=== PATIENT | male | born 1950 | race Caucasian/White ===

== ENCOUNTER 2016-11-18 19:43 | Observation (INO) | payer BC ==
--- NOTE | ~2016-11-18 | HP ---
History And Physical [address] [address] NAME: HIMA MOLINA : 48 STATUS : REG ER PAT#: [id number] AGE: 66 ADM/REG DATE : 11/18/16 MR#: [id number] REPORT SERV DATE: 11/19/16 DICTATED BY: JOSTIN CHAVEZ DATE: 11/19/16 REPORT STATUS : Draft TRANSCRIBED BY: MODL DATE: 11/19/16 DATE OF ADMISSION: 11/18/2016 CHIEF COMPLAINT: Shortness of breath. HISTORY OF PRESENT ILLNESS: The patient is a 66-year-old male. He has a past medical history significant for: 1. COPD. 2. Coronary artery disease, status post valve replacement and five-vessel CABG. 3. Diabetes. 4. Hyperlipidemia. 5. Neuropathy. He normally uses 2 to 2-1/2 L of oxygen at home for the past week. He has had to increase it to 3. He states his symptoms have been wheezing and cough. No documented temperature. He had diarrhea for approximately a week two weeks ago but that has since resolved. He has been using his oxygen, his home medications. He was more short of breath today and presented for evaluation. Initially, he required high-flow O2. Currently, post treatment he is comfortable on 4 L, in no acute distress. He has had no associated chest pain, palpitations with this particular episode. He states actually his coronary status has been very stable since two years ago when he had all the previous problems. PAST MEDICAL HISTORY: As covered above. PAST SURGICAL HISTORY: He reports only the CABG and a valve replacement. CURRENT MEDICATIONS: Current medications are ProAir, aspirin 81, Lipitor 40, Symbicort 160/4.5 two puffs twice a day, calcium plus D 600, Coreg 6.25 b.i.d., Colace, Neurontin 300 at bedtime, Apidra insulin he states he averages 5-10 units per meal, Imdur 30, Mobic 15, multivitamin, Protonix 40, Janumet one twice a day, Potassium OTC, Ambien 5 at bedtime. ALLERGIES: CRESTOR. HE STATES THEY CAUSED HIM KIDNEY PROBLEMS. FAMILY HISTORY: Both parents . Mother has back cancer. His father . SOCIAL HISTORY: He is a previous smoker, 2 pack per day. Quit 13 years ago. No EtOH. REVIEW OF SYSTEMS: HEENT: He has had no sinus or sore throat. CARDIOVASCULAR: No chest pain or palpitations. PULMONARY: As covered in HPI. GI: As covered in HPI. : He is not having frequency or urgency. NEUROMUSCULOSKELETAL: Generalized myalgias. Otherwise 10-point review of systems is negative. History And Physical [address] [address] NAME: HIMA MOLINA : 48 STATUS : REG ER PAT#: [id number] AGE: 66 ADM/REG DATE : 11/18/16 MR#: [id number] REPORT SERV DATE: 11/19/16 DICTATED BY: JOSTIN CHAVEZ DATE: 11/19/16 REPORT STATUS : Draft TRANSCRIBED BY: AUDIE DATE: 11/19/16 PHYSICAL EXAMINATION: VITAL SIGNS: BP 164/81, temperature 98.5, pulse 97, respirations 16, sat 94%. GENERAL: He is awake, alert, appropriate, in no acute distress. No labored breathing. He is not confused or disoriented. HEENT: Normocephalic, atraumatic. Sclerae nonicteric. NECK: Supple. HEART: Regular rate and rhythm. No significant murmurs or gallops or rubs. LUNGS: Actually sound fairly well. He has minimal expiratory wheezing. He has reasonable air movement. ABDOMEN: Nontender, nondistended. EXTREMITIES: No clubbing, cyanosis, or edema. LABORATORY DATA: Sodium 142, potassium 4.8, chloride 100, CO2 of 35, BUN and creatinine are 20 and 0.94 with a glucose of 281. Mag is slightly low at 1.3, alkaline phosphatase is 163. Troponins 0.03. BNP is 210. Lipase is 100, lactate is 2.1. White count is 19.8, H and H 13.8 and 42.4, platelets are 260. Urinalysis shows large LE and 41 white blood cells with 2 epis. Chest x-ray to my interpretation; COPD. EKG; normal sinus rhythm. Normal EKG. ASSESSMENT: Chronic obstructive pulmonary disease exacerbation, possible urinary tract infection, history of coronary artery disease, and diabetes mellitus. PLAN: 1. The patient is admitted. We will do an observation. 2. Steroids, breathing treatments, nebulizers, reasonable O2. 3. Replace mag. 4. Antibiotics both for the pulmonary complaints and possible UTI. TLF/MODL Jostin Chavez M.D. / [id number]
--- NOTE | ~2016-11-18 | DS ---
Discharge Summary [address] [place]. [address] NAME: HIMA MOLINA : 48 STATUS : DIS John PAT#: [id number] AGE: 66 ADM/REG DATE : 11/18/16 MR#: [id number] REPORT SERV DATE: 11/21/16 DICTATED BY: DATE: REPORT STATUS : Draft TRANSCRIBED BY: MODL DATE: 11/20/16 ADMISSION DATE: 11/18/2016 DISCHARGE DATE: 11/20/2016 DISCHARGE DIAGNOSES: 1. Chronic obstructive pulmonary disease/chronic respiratory failure with acute exacerbation. 2. Type 2 diabetes, uncontrolled. 3. Neuropathy. 4. Coronary artery disease, chronic. 5. Hyperlipidemia. 6. Abnormal urinalysis? CONSULTATIONS: None. PERTINENT TESTS AND PROCEDURES: 1. Chest x-ray, 11/18/2016: Impression: Cardiomediastinal silhouette normal in size and contour. No airspace consolidation demonstrated within the lungs. No pleural fluid collection or pneumothorax seen. 2. Urinalysis specimen collected 11/19: Result: Leukocyte esterase negative, nitrite negative, 3 red blood cells, 6 white blood cells, 1 epithelial, squamous cell. CHIEF COMPLAINT UPON ADMISSION: Shortness of breath. HOSPITAL COURSE: Please refer to the history and physical dated 11/19/[address] Jostin Hopkins for complete details pertaining to patient's initial presentation upon admission and health history. Briefly, the patient is a 66-year-old male who presented to the emergency department on 11/18 with complaints of shortness of breath at home for the past week. The patient reported increased requirement for supplemental oxygen stating normal requirement at home is between 2 and 2.5 L per nasal cannula. The patient also reported that he had increased wheezing and coughing with no documented temperature. Initial evaluation and assessment included suspicion for chronic obstructive pulmonary disease exacerbation and possible urinary tract infection. The patient was admitted for further evaluation and treatment. 1. COPD with chronic respiratory failure, acute exacerbation. Per patient report, he is followed on an outpatient basis by Dr. Piedra, wire winder. The patient said he had been instructed in the past to use his supplemental oxygen 24 hours a day. However, the patient states that he has only been using nighttime supplemental oxygen because he believed he did not require it during the day. Oxygen saturation on room air at rest was reported to be between 86 and 89%, and 82% on room air with ambulation. The patient was advised of these findings, and educated to wear his supplemental oxygen 24 Discharge Summary [address] [place]. [address] NAME: HIMA MOLINA : 48 STATUS : DIS John PAT#: [id number] AGE: 66 ADM/REG DATE : 11/18/16 MR#: [id number] REPORT SERV DATE: 11/21/16 DICTATED BY: DATE: REPORT STATUS : Draft TRANSCRIBED BY: MODL DATE: 11/20/16 hours a day, seven days weekly until followup with Pulmonology. The patient was started on azithromycin 500 mg IV daily and methylprednisolone 60 mg IV every six hours upon admission. Azithromycin was transitioned to p.o., methylprednisone was discontinued and prednisone 40 mg p.o. daily was started. The patient will complete a total of five-day antibiotic and steroid therapy to be continued as an outpatient. Both medications will be completed on 11/23. 2. At the time of discharge, the patient's oxygen saturation was stable at 93% on 3 L. Respiratory Therapy is to meet with the patient and provide flutter valve and education regarding proper use prior to discharge home. The patient received prescription for albuterol inhalation solution, 3 mL every eight hours as needed x2 weeks. The patient has a nebulizer machine at home. The patient was also instructed to call Dr. Piedra's office tomorrow and advised of recent hospitalization regarding acute exacerbation and request appointment within two weeks. 3. Type 2 diabetes mellitus, uncontrolled. The patient's A1c was reported to be 10. Blood glucose has increased secondary to steroids. The patient was educated on the risk associated with high A1c especially in the setting of coronary artery disease. The patient was instructed to check blood glucose three times daily while on steroids and was provided a copy of sliding scale insulin level 3 instructions. The patient was advised to call primary care provider tomorrow to schedule followup visit within the next seven days to re-evaluate current diabetic medication regimen in the setting of uncontrolled hyperglycemia. 4. Neuropathy. This is likely secondary to uncontrolled type 2 diabetes. The patient continued home dose of gabapentin during this admission. 5. Coronary artery disease. The patient is status post valve replacement and five-vessel coronary artery bypass graft. Condition has remained stable throughout this admission. Troponin was obtained upon admission and was negative. The patient continued aspirin and cardiac medications throughout this admission. 6. Hyperlipidemia. The patient continued statin throughout this admission. DISCHARGE CONDITION: At the time of discharge, the patient was hemodynamically stable. DISCHARGE DIET: 1800-calorie ADA diet. DISCHARGE MEDICATIONS: 1. Aspirin 81 mg tablet p.o. daily. 2. Lipitor 40 mg tablet p.o. daily at bedtime. 3. Zithromax 500 mg tablet p.o. daily, last dose 11/23/2016. 4. Janumet mg tablet, one tablet p.o. twice daily. 5. Coreg 6.25 mg tablet p.o. twice daily. 6. Caltrate 600 mg tablet p.o. daily. 7. Colace 100 mg tablet p.o. every morning. 8. Neurontin 300 mg tablet p.o. daily at bedtime. 9. Guaifenesin 600 mg p.o. every 12 hours as needed. 10.Apidra insulin sliding scale. The patient was provided a copy of sliding scale insulin to use this guide at home. 11.Imdur 30 mg tablet p.o. daily. 12.Mobic 15 mg tablet p.o. daily. Discharge Summary [address] [place]. [address] NAME: HIMA MOLINA : 48 STATUS : DIS John PAT#: [id number] AGE: 66 ADM/REG DATE : 11/18/16 MR#: [id number] REPORT SERV DATE: 11/21/16 DICTATED BY: DATE: REPORT STATUS : Draft TRANSCRIBED BY: MODL DATE: 11/20/16 13.Multivitamin one tablet p.o. daily. 14.Protonix 40 mg tablet p.o. daily. 15.Ambien 5 mg tablet p.o. daily at bedtime. 16.Prednisone 40 mg tablet p.o. daily through 11/23/2016. 17.Albuterol metered-dose inhaler two puffs inhaled as needed. 18.Tylenol 650 mg p.o. every four hours as needed. 19.Ellis nasal spray one to two squirts in each nostril as needed. 20.Albuterol 2.5 mg/3 mL solution, 3 mL inhaled every eight hours as needed for shortness of breath and wheeze; dispensed two-week supply. 21.[id number] potassium daily. 22.Symbicort 160/4.5 inhaler two puffs inhaled twice daily. DISCHARGE INSTRUCTIONS: 1. The patient is to call Dr. Piedra's office, wire winder, in the morning to arrange for followup visit within the next two weeks for reevaluation and treatment of chronic COPD with recent exacerbation. 2. The patient is to arrange appointment with primary care physician within seven days regarding uncontrolled type 2 diabetes. 3. The patient was instructed to complete all medications as prescribed. The patient was re-educated on wearing supplemental oxygen 24 hours daily seven days weekly as he reported pulmonology originally prescribed. The patient was instructed to return to the emergency department for any acute onset of fever of 100.4 degrees Fahrenheit or higher lasting more than one hour; increased shortness of breath from baseline; chest pain; syncope or near syncopal episode, or any other health concerns that are deviations from his baseline status at the time of this discharge. PRIMARY CARE PHYSICIAN: The patient did not know the name, but stated had contact information at home. PRIMARY BLOW MOLDING MACHINE OPERATOR: Claribel Piedra M.D. PRIMARY OBJECT ORIENTED DEVELOPER: Dr. Nixon/Bonnie Taylor, nurse practitioner. [facility]/AUDIE KORY Molina / [id number] CC: Aaron Hadley II, MD
[2016-11-18 19:39] LABS: BASOPHILS 0.2 %; BASOPHILS ABSOLUTE 0.02 10/3/uL (0.0-0.16); EOSINOPHILS 3.3 %; EOSINOPHILS ABSOLUTE 0.32 10/3/uL (0.0-0.53); HEMATOCRIT 42.4 % (40.0-51.0); HEMOGLOBIN 13.8 g/dL (13.6-17.8); IMMATURE GRANULOCYTES 0.1 %; IMMATURE GRANULOCYTES ABSOLUTE 0.01 10/3/uL (0.0-0.11); LYMPHOCYTES 11.8 %; LYMPHOCYTES ABSOLUTE 1.16 10/3/uL (0.67-4.30); MEAN CORPUS HGB CONC 32.5 g/dL (32.0-36.0); MEAN CORPUSCULAR HEMOGLOB 29.5 pg (26.0-34.0); MEAN CORPUSCULAR VOLUME 90.6 fL (80-100); MEAN PLATELET VOLUME 10.8 fL (9.2-13.0); MONOCYTES 10.1 %; MONOCYTES ABSOLUTE 0.99 10/3/uL (0.21-1.20); NEUTROPHILS 74.5 %; NEUTROPHILS ABSOLUTE 7.32 10/3/uL (2.02-8.40); RBC DISTRIBUTION WIDTH 12.8 % (12.0-16.0); RED CELL COUNT 4.68 10/6/uL (4.7-6.1)
[2016-11-18 19:40] LABS: ER CBC TAT 0 Hrs 12 Mins; MANUAL DIFF NO %; PLATELET COUNT 260 10/3/uL (150-400); WHITE BLOOD CELLS 9.8 10/3/uL (4.5-10.5)
[~2016-11-18 19:43] MED LIST: *UNABLE1; ACCUNE1 INH; ADVAIR250 INH; ANDERSON PO; APIDRA; APIDRA SC; ASAB PO; ATROVENTUD INH; BACTRONASA NAS; BYDUREON2 MG SQ; CALTRAT600 PO; CENTRUM TAB1 TAB PO; CLARIT10 PO; CODEINE/GUAI1 ML PO; COMBIVENT INH; COREG3 PO; DSS PO; ENDOCET1 TAB PO; FARXIGA10 PO; FARXIGA5 PO; FLOMAX4 PO; FLONASE NAS; FLUCON1 PO; GABAPENTIN; JANUVIA100 MG PO; KLOR-CON M1010 MEQ PO; KLOR-CON M2020 MEQ PO; L40 PO; LANTUS SC; LANTUS SQ; LEVAQUIN750 MG PO; MUCINEX600 MG PO; MULTIVIT/MIN PO; NEUR300 PO; NORCO1 TA1 PO; NOVOLOG SC; PCET PO; PRAVAC PO; PRIN5 PO; PROAIR HFA; PROTONIX PO; RED YEAS1 OR; SINGULAIR1 PO; SPIRIVA INH; STOOL SOFTEN100 MG PO; SYMBICORT 160/41 INH IH; T PO; TESS PO; TRICOR145 PO; ULTRAM50 PO; UNABLE TO OBTAIN; ZESTRIL2.5 MG PO; ZOFRAN4 PO; ZYRTEC ALLGY10 MG PO
[2016-11-18 19:54] LABS: INTERNATIONAL NORMAL RATI 1.1 UNITS (-); PROTIME (NOT ORD) 13.9 SEC (12.0-14.5)
[2016-11-18 19:55] LABS: PARTIAL THROMBO TIME 31.3 SEC (22.5-37.2)
[2016-11-18 19:57] LABS: ALBUMIN 3.5 G/DL (3.5-5.0); ALKALINE PHOSPHATASE 163 U/L (45-117); BUN (BLOOD UREA NITROGEN) 20 MG/DL (6-23); CALCIUM, SERUM 9.2 MG/DL (8.5-10.4); CHEST PAIN PROFILE TAT 0 Hrs 29 Mins; CHLORIDE, SERUM 100 MMOL/L (96-112); CO2 (CARBON DIOXIDE) 35 MMOL/L (24-34); CREATININE 0.94 MG/DL (0.70-1.30); DIRECT BILIRUBIN < 0.1 MG/DL (0.0-0.4); GFR AFRICAN AMERICAN 97 ML/MIN (>=60); GFR NON AFRICAN AMERICAN 84 ML/MIN (>=60); GLUCOSE, SERUM 281 MG/DL (60-99); INDIRECT BILIRUBIN(NOT ORDER) 0.1 MG/DL (0.1-0.9); POTASSIUM, SERUM 4.8 MMOL/L (3.5-5.3); SGOT(AST) 4 U/L (5-40); SGPT(ALT) 17 U/L (5-65); SODIUM, SERUM 142 MMOL/L (135-148); TOTAL BILIRUBIN 0.2 MG/DL (0-1.2); TROPONIN I 0.03 NG/ML (<0.05)
[2016-11-18 20:15] LABS: ASCORBIC ACID (UR NOT ORDER) NEG (NEG); BILIRUBIN, URINE NEGATIVE (NEG); ER URINALYSIS TAT 0 Hrs 14 Mins; KETONE, URINE NEGATIVE (NEG); LEUKOCYTE ESTERASE(NOT OR LARGE (NEG); NITRITE (URINE) NEG (NEG); WBC (NOT ORDERED) (RFLEX) 41 (0-5)
[2016-11-18 20:24] LABS: LACTATE 1.1 MMOL/L (0.3-2.4)
[2016-11-18] MEDS ORDERED: MOBIC15 MG PO (21:03)
[2016-11-18] MEDS ORDERED: JANUMET1 TA1 PO (21:03)
[2016-11-18] MEDS ORDERED: PROTONIX PO (21:03)
[2016-11-18] MEDS ORDERED: LIPITOR40 PO (21:03)
[2016-11-18] MEDS ORDERED: IMDUR30 PO (21:03)
[2016-11-18] MEDS ORDERED: NEUR300 PO (21:04)
[2016-11-18] MEDS ORDERED: AMB5 PO (21:06)
[2016-11-18] MEDS ORDERED: POTASSIUM 595 MG PO (21:07)
[2016-11-18] MEDS ORDERED: DSS PO (21:07)
[2016-11-18] MEDS ORDERED: ASAB PO (21:07)
[2016-11-18] MEDS ORDERED: CALTRA600D PO (21:08)
[2016-11-18] MEDS ORDERED: MULTIVIT/MIN PO (21:08)
[2016-11-18] MEDS ORDERED: COREG6 PO (21:09)
[2016-11-18] MEDS ORDERED: PROAIR HFA INH (21:10)
[2016-11-18] MEDS ORDERED: APIDRA (21:10)
[2016-11-18] MEDS ORDERED: SYMBICORT 160/41 INH INH (21:10)
[2016-11-19 01:45] LABS: PROCALCITONIN 0.15 ng/mL (<0.5)
[2016-11-19 06:29] LABS: BUN (BLOOD UREA NITROGEN) 18 MG/DL (6-23); CALCIUM, SERUM 9.1 MG/DL (8.5-10.4); CHLORIDE, SERUM 101 MMOL/L (96-112); CO2 (CARBON DIOXIDE) 32 MMOL/L (24-34); CREATININE 0.76 MG/DL (0.70-1.30); GFR AFRICAN AMERICAN 109 ML/MIN (>=60); GFR NON AFRICAN AMERICAN 94 ML/MIN (>=60); GLUCOSE, SERUM 276 MG/DL (60-99); POTASSIUM, SERUM 4.1 MMOL/L (3.5-5.3); SODIUM, SERUM 142 MMOL/L (135-148); TROPONIN I 0.03 NG/ML (<0.05)
[2016-11-19 07:25] LABS: PROCALCITONIN 0.07 ng/mL (<0.5)
[2016-11-19 14:00] LABS: ASCORBIC ACID (UR NOT ORDER) NEG (NEG); BILIRUBIN, URINE NEGATIVE (NEG); KETONE, URINE TRACE MG/DL (NEG); LEUKOCYTE ESTERASE(NOT OR NEG (NEG); WBC (NOT ORDERED) (RFLEX) 6 (0-5)
[2016-11-19 14:52] LABS: INFLUENZA A SCREEN NEGATIVE (NEGATIVE); INFLUENZA B SCREEN NEGATIVE (NEGATIVE)
[2016-11-20 05:24] LABS: BASOPHILS 0 %; EOSINOPHILS 0 %; HEMOGLOBIN 12.5 g/dL (13.6-17.8); IMMATURE GRANULOCYTES 0.3 %; IMMATURE GRANULOCYTES ABSOLUTE 0.03 10/3/uL (0.0-0.11); LYMPHOCYTES 8.7 %; LYMPHOCYTES ABSOLUTE 0.89 10/3/uL (0.67-4.30); MEAN CORPUS HGB CONC 33.4 g/dL (32.0-36.0); MEAN CORPUSCULAR HEMOGLOB 29.5 pg (26.0-34.0); MEAN CORPUSCULAR VOLUME 88.2 fL (80-100); MEAN PLATELET VOLUME 10.4 fL (9.2-13.0); MONOCYTES 3.3 %; MONOCYTES ABSOLUTE 0.34 10/3/uL (0.21-1.20); NEUTROPHILS 87.7 %; NEUTROPHILS ABSOLUTE 8.93 10/3/uL (2.02-8.40); PLATELET COUNT 259 10/3/uL (150-400); RBC DISTRIBUTION WIDTH 12.5 % (12.0-16.0); RED CELL COUNT 4.24 10/6/uL (4.7-6.1); WHITE BLOOD CELLS 10.2 10/3/uL (4.5-10.5)
[2016-11-20 05:27] LABS: HEMATOCRIT 37.4 % (40.0-51.0); MANUAL DIFF NO %
[2016-11-20 05:37] LABS: CALCIUM, SERUM 8.9 MG/DL (8.5-10.4); CHLORIDE, SERUM 99 MMOL/L (96-112); CO2 (CARBON DIOXIDE) 29 MMOL/L (24-34); CREATININE 1.07 MG/DL (0.70-1.30); GFR AFRICAN AMERICAN 83 ML/MIN (>=60); GFR NON AFRICAN AMERICAN 71 ML/MIN (>=60); POTASSIUM, SERUM 4.4 MMOL/L (3.5-5.3); SODIUM, SERUM 141 MMOL/L (135-148)
[2016-11-20 05:42] LABS: BUN (BLOOD UREA NITROGEN) 37 MG/DL (6-23); GLUCOSE, SERUM 173 MG/DL (60-99)
[2016-11-20] MEDS ORDERED: ZITHROMAX500 MG PO (16:14)
[2016-11-20] MEDS ORDERED: MUCINEX600 MG PO (16:15)
[2016-11-20] MEDS ORDERED: ALBUTEROL0.083 % INH (16:17)
[2016-11-20] MEDS ORDERED: OCEAN NAS (16:18)
[2016-11-20] MEDS ORDERED: P20 PO (16:18)
[2017-03-14] MEDS ORDERED: SYMBICORT 160/41 INH INH (22:05)
[2017-03-14] MEDS ORDERED: PROTONIX PO (22:05)
[2017-03-14] MEDS ORDERED: JANUMET1 TA1 PO (22:05)
[2017-03-14] MEDS ORDERED: COREG6 PO (22:08)
[2017-03-14] MEDS ORDERED: LIPITOR20 PO (22:08)
[2017-03-14] MEDS ORDERED: APIDRA SC (22:09)
[2017-03-14] MEDS ORDERED: NEUR300 PO (22:10)
[2017-03-14] MEDS ORDERED: ASAB PO (22:10)
[2017-03-14] MEDS ORDERED: LANTUSCART SC (22:10)
[2017-03-14] MEDS ORDERED: DSS PO (22:11)
[2017-03-14] MEDS ORDERED: CALTRAT600 PO (22:11)
[2017-03-14] MEDS ORDERED: DUONEB INH (22:13)
[2017-03-14] MEDS ORDERED: AMB5 PO (22:13)
[2017-03-14] MEDS ORDERED: SPIRIVA INH (22:13)
[2017-03-14] MEDS ORDERED: ALBUTEROL0.083 % INH (22:14)
[2017-03-14] MEDS ORDERED: PROAIR HFA INH (22:17)
[2017-03-14] MEDS ORDERED: MULTIVIT/MIN PO (22:18)
[2017-03-14] MEDS ORDERED: IRON OTC PO (22:19)
[2017-03-14] MEDS ORDERED: IMDUR30 PO (22:20)
[2017-03-16] MEDS ORDERED: BROVANA15 MCG INH (10:42)
[2017-03-16] MEDS ORDERED: PULRESP.5 INH (10:44)
[2017-03-16] MEDS ORDERED: TESS PO (10:45)
[2017-03-16] MEDS ORDERED: LANTUS SC (10:46)
[2017-03-16] MEDS ORDERED: LEVAQUIN750 MG PO (10:47)
[2017-03-16] MEDS ORDERED: P10 PO (10:48)
[2017-03-16] MEDS ORDERED: PROBIOTIC (10:49)
[2017-03-16] MEDS ORDERED: MUCINEX600 MG PO (10:50)
== END 2016-11-20 18:02 | disposition home or self-care (01) ==
LOC: ER 19:43 → CDU1 23:55 → CDU2 11-19 01:28
PROVIDERS: Emergency Medicine; Internal Medicine
DX: J44.1 Chronic obstructive pulmonary disease with (acute) exacerbation (principal); J96.10 Chronic respiratory failure, unspecified whether with hypoxia or hypercapnia; I25.10 Atherosclerotic heart disease of native coronary artery without angina pectoris; E11.9 Type 2 diabetes mellitus without complications; I10 Essential (primary) hypertension; E78.5 Hyperlipidemia, unspecified; G62.9 Polyneuropathy, unspecified; E78.00 Pure hypercholesterolemia, unspecified; I25.2 Old myocardial infarction; I73.9 Peripheral vascular disease, unspecified; M19.90 Unspecified osteoarthritis, unspecified site; K21.9 Gastro-esophageal reflux disease without esophagitis; Z95.5 Presence of coronary angioplasty implant and graft; Z88.8 Allergy status to other drugs, medicaments and biological substances; Z87.01 Personal history of pneumonia (recurrent); Z98.890 Other specified postprocedural states; Z79.899 Other long term (current) drug therapy
CPT/HCPCS: 71010; 80048; 80076; 81001; 82962; 83036; 83605; 83690; 83735; 83880; 84145; 84484; 85025; 85610; 85730; 87086; 87449; 87804; 93005; 94640; 96365; 96372; 96375; 96376; 99285; A9270-GY; G0378; J0456; J2930